=== PATIENT | female | born 1985 | race Two or more races ===

== ENCOUNTER 2021-02-21 09:50 | Emergency (ER) | payer MEDICAID, OTHER ==
[~2021-02-21] VITALS: Ht 160 cm; Wt 79.4 kg
[2021-02-21 11:17] LABS: Urine Bacteria NONE SEEN /hpf (None Seen); Urine Blood Negative /uL (Negative); Urine Specific Gravity 1.006 (1.001-1.035); Urine WBC <1 /hpf (0 - 5)
[2021-02-21 11:26] VITALS: BP 156/88
== END 2021-02-21 12:23 | disposition home or self-care (01) ==
LOC: ER 09:50
DX: K64.8 Other hemorrhoids (principal); Z32.02 Encounter for pregnancy test, result negative
CPT/HCPCS: 81001; 81025

== ENCOUNTER 2024-01-18 14:15 | Emergency (ER) | payer BC, MEDICAID ==
[~2024-01-18] VITALS: Ht 160 cm; Wt 73.0 kg
[2024-01-18 15:15] VITALS: BP 129/87; PULSE 57; RESP 15; TEMP 98.3; O2SAT 99
[2024-01-18 15:37] VITALS: PULSE 61; RESP 18; O2SAT 99
[2024-01-18 16:15] LABS: Urine Bacteria FEW /hpf (None Seen); Urine Blood 1+ /uL (Negative); Urine Clarity Turbid (Clear); Urine Color Colorless (Yellow); Urine Protein, UAD Negative (Negative); Urine Specific Gravity 1.004 (1.001-1.035); Urine Urobilinogen Normal (Negative); Urine WBC 2 /hpf (0 - 5); Urine pH 6.5 (5.0-9.0)
[2024-01-18] MEDS ORDERED: NITR-87 PO (19:57)
== END 2024-01-18 20:31 | disposition home or self-care (01) ==
LOC: ER 14:15
DX: O20.8 Other hemorrhage in early pregnancy (principal); R10.2 Pelvic and perineal pain; O26.891 Other specified pregnancy related conditions, first trimester; N39.0 Urinary tract infection, site not specified; I10 Essential (primary) hypertension; Z3A.01 Less than 8 weeks gestation of pregnancy; Z88.8 Allergy status to other drugs, medicaments and biological substances
CPT/HCPCS: 36415; 76801; 76817; 81001; 84702; 86850; 86900; 86901